=== PATIENT | female | born 1995 | race African-American/Black ===

== ENCOUNTER → 2017-09-14 | Outpatient (REF) | payer OTHER ==
[2017-09-14 19:41] LABS: CHLAMYDIA DNA AMPLIFICATION NEGATIVE (NEGATIVE); GC DNA AMPLIFICATION NEGATIVE (NEGATIVE)
== END ==
LOC: M LAB REF 16:52
DX: Z11.3 Encounter for screening for infections with a predominantly sexual mode of transmission (principal); Z12.4 Encounter for screening for malignant neoplasm of cervix

== ENCOUNTER → 2017-10-15 | Outpatient (REF) | payer OTHER ==
[2017-10-15 17:32] LABS: ALBUMIN 3.9 GM/DL (3.2-5.2); ALBUMIN/GLOBULIN RATIO 0.98 (1.00-1.93); ALKALINE PHOSPHATASE 112 U/L (45-117); ALT/SGPT 23 U/L (12-78); ANION GAP 8 MEQ/L (8-16); AST/SGOT 16 U/L (7-37); BILIRUBIN,TOTAL 0.3 MG/DL (0.2-1.0); BLOOD UREA NITROGEN 9 MG/DL (7-18); CALCIUM LEVEL 9.4 MG/DL (8.5-10.1); CARBON DIOXIDE LEVEL 27 MEQ/L (21-32); CHLORIDE LEVEL 107 MEQ/L (98-107); CREATININE FOR GFR 0.76 MG/DL (0.55-1.30); GLOMERULAR FILTRATION RATE > 60.0 (>60); GLUCOSE, FASTING 79 MG/DL (70-100); POTASSIUM SERUM 4.5 MEQ/L (3.5-5.1); SODIUM LEVEL 142 MEQ/L (136-145); TOTAL PROTEIN 7.9 GM/DL (6.4-8.2)
[2017-10-15 17:41] LABS: INR 0.94; PROTHROMBIN TIME 12.7 SECONDS (12.4-14.5)
[2017-10-15 17:50] LABS: BASO % 0.5 % (0.0-1.0); EOS # 0.1 10^3/uL (0.0-0.50); EOS % 0.8 % (0.0-3.0); HEMATOCRIT 40.9 % (36.0-47.0); HEMOGLOBIN 13.4 g/dl (12.0-16.0); IMMATURE GRANULOCYTE % 0.1 % (0-3.0); LYMPH # 2.4 10^3/uL (1.5-6.5); LYMPH % 31.1 % (24.0-44.0); MEAN CORPUSCULAR HEMOGLOBIN 29.7 pg (27.0-33.0); MEAN CORPUSCULAR HGB CONC 32.8 g/dl (32.0-36.5); MEAN CORPUSCULAR VOLUME 90.7 fl (80.0-96.0); MONO # 0.4 10^3/uL (0.0-0.8); MONO % 5.2 % (0.0-5.0); NEUTROPHILS # 4.7 10^3/uL (1.8-7.7); NEUTROPHILS % 62.3 % (36.0-66.0); PLATELET COUNT, AUTOMATED 376 10^3/uL (150-450); RED BLOOD COUNT 4.51 10^6/uL (4.00-5.40); RED CELL DISTRIBUTION WIDTH 12.9 % (11.5-14.5); WHITE BLOOD COUNT 7.6 10^3/uL (4.0-10.0)
== END ==
LOC: M LAB REF 16:42
DX: Z01.818 Encounter for other preprocedural examination (principal)

== ENCOUNTER → 2019-10-16 | Outpatient (REF) | payer OTHER ==
[2019-10-16 13:22] LABS: HEMATOCRIT 38.5 % (36.0-47.0); HEMOGLOBIN 12.5 g/dl (12.0-15.5); MEAN CORPUSCULAR HGB CONC 32.5 g/dl (32.0-36.5); MEAN CORPUSCULAR VOLUME 95.5 fl (80.0-96.0); PLATELET COUNT, AUTOMATED 300 10^3/uL (150-450); RED BLOOD COUNT 4.03 10^6/uL (4.00-5.40); WHITE BLOOD COUNT 6.7 10^3/uL (4.0-10.0)
[2019-10-16 14:06] LABS: HCG, SERUM QUANTITATIVE 95499 MIU/ML
[2019-10-17 09:18] LABS: RUBELLA IgG QUALITATIVE IMMUNE (IMMUNE)
[2019-10-17 09:47] LABS: HEPATITIS C VIRUS ABY INDEX 0.1 INDEX (<0.8); HIV 1&2 SCREEN CENTAUR NEGATIVE (NEGATIVE)
[2019-10-20 14:15] LABS: HEMOGLOBIN A 97.8 % (96.4-98.8); HEMOGLOBIN A2 2.2 % (1.8-3.2); HGB SOLUBILITY Negative (Negative)
== END ==
LOC: M LAB REF 12:30
PROVIDERS: ATTEND Obstetrics & Gynecology
DX: O36.80X0 Pregnancy with inconclusive fetal viability, not applicable or unspecified (principal); Z3A.00 Weeks of gestation of pregnancy not specified

== ENCOUNTER → 2019-10-20 | Outpatient (CLI) | payer OTHER ==
--- NOTE | 2019-10-20 12:12 | REP ---
REASON FOR EXAM: Supervision of normal . Transvesical imaging was obtained. Within the endometrial cavity there is an anechoic structure with increased echoes surrounding it consistent with a decidual reaction. Within the gestational sac there is echogenic material consistent with a pole, the mean crown-rump length measurement of which is consistent with an 8 week 1 day gestational age. Based on that the estimated date of delivery is 05/30/2020. Doppler interrogation of the heart shows a heart rate of 165 beats per minute. No chorionic or subchorionic abnormality was noted. Evaluation of the maternal adnexal spaces showed no abnormalities. A 2.8 x 2.1 x 2.2 cm sized complex appearing cyst was seen in the right ovary likely a corpus luteum cyst. IMPRESSION: Early OB ultrasound as described above. Electronically Signed by Rafael Perry DO 10/20/2019 01:01 P
== END ==
LOC: M RAD 10:25
PROVIDERS: ATTEND Obstetrics & Gynecology
DX: Z34.81 Encounter for supervision of other normal pregnancy, first trimester (principal); Z3A.08 8 weeks gestation of pregnancy

== ENCOUNTER → 2019-10-27 | Outpatient (REF) | payer OTHER | LOC: M LAB REF 16:24 | PROVIDERS: ATTEND Obstetrics & Gynecology | DX: Z34.81 Encounter for supervision of other normal pregnancy, first trimester (principal) ==

== ENCOUNTER → 2020-01-15 | Outpatient (CLI) | payer OTHER ==
[~2020-01-15] MED LIST: ACET-683 PO; IBUP80TA PO
--- NOTE | 2020-01-15 15:02 | REP ---
OBSTETRIC SONOGRAPHY: HISTORY: Supervision of for anatomy. FINDINGS: Scanning through the gravid uterus demonstrates a single living intrauterine gestation in a cephalic lie. motion is observed and heart rate is recorded at 134 beats per minute. A anterior grade 1 placenta is seen without evidence of previa or abruption. Amniotic fluid is subjectively normal. Closed cervical length is measured at 3.0 cm viewed transabdominally. No extrauterine abnormality is observed. There are two anechoic areas in the placenta consistent with venous lakes. No abnormality is observed. The following anatomic structures are identified and felt to be sonographically unremarkable: cranium, choroid plexus, cavum, cerebellum and posterior fossa, nuchal fold face and profile, four-chamber heart, left and right ventricular outflow tract views, diaphragm, left-sided stomach, abdominal wall cord insertion, three-vessel umbilical cord, kidneys and bladder, spine, upper and lower extremities. BIOMETRY CHART: BPD 4.9 cm = 20 weeks 6 days HC 18.2 cm = 20 weeks 4 days AC 16.6 cm = 21 weeks 4 days FL 3.2 cm = 19 weeks 6 days HL 3.3 cm = 21 weeks 1 day HC/AC ratio normal 1.10 Cephalic index normal 0.74. Estimated weight 376 grams, 0 pounds 13 ounces, 55th percentile for 20 weeks 4 days. IMPRESSION: Viable single intrauterine gestation at 21 weeks 1 day by today's composite sonographic criteria. CASEY by today's sonography May 26, 2020. anatomic survey is felt to be complete.
== END ==
LOC: M WHC 12:04
PROVIDERS: ATTEND Obstetrics & Gynecology
DX: Z34.02 Encounter for supervision of normal first pregnancy, second trimester (principal); Z36.89 Encounter for other specified antenatal screening; Z3A.21 21 weeks gestation of pregnancy

== ENCOUNTER → 2020-02-25 | Outpatient (CLI) | payer OTHER ==
[2020-04-18 15:10] LABS: HEMATOCRIT 37.2 % (36.0-47.0); HEMOGLOBIN 11.1 g/dl (12.0-15.5); MEAN CORPUSCULAR HEMOGLOBIN 19.2 pg (27.0-33.0); MEAN CORPUSCULAR HGB CONC 29.8 g/dl (32.0-36.5); MEAN CORPUSCULAR VOLUME 64.5 fl (80.0-96.0); PLATELET COUNT, AUTOMATED 266 10^3/uL (150-450); RED BLOOD COUNT 5.77 10^6/uL (4.00-5.40); WHITE BLOOD COUNT 8.8 10^3/uL (4.0-10.0)
== END ==
LOC: M LAB 14:20
PROVIDERS: ATTEND Advanced Practice Midwife
DX: Z34.02 Encounter for supervision of normal first pregnancy, second trimester (principal); Z3A.00 Weeks of gestation of pregnancy not specified

== ENCOUNTER 2020-05-22 02:06 | Inpatient (IN) | payer OTHER ==
[~2020-05-22] VITALS: Ht 160 cm; Wt 84.6 kg
[2020-05-22] VITALS (33 sets, daily range): BP systolic 76–171; BP diastolic 40–124
[2020-05-22 05:30] LABS: HEMATOCRIT 40.9 % (36.0-47.0); HEMOGLOBIN 13.1 g/dl (12.0-15.5); MEAN CORPUSCULAR HEMOGLOBIN 30.4 pg (27.0-33.0); MEAN CORPUSCULAR VOLUME 94.9 fl (80.0-96.0); PLATELET COUNT, AUTOMATED 194 10^3/uL (150-450); RED BLOOD COUNT 4.31 10^6/uL (4.00-5.40); WHITE BLOOD COUNT 9.9 10^3/uL (4.0-10.0)
[2020-05-22] MEDS ORDERED: FENTANYL 2MCG/ML ROPIVACAINE 0.2% IN 0.9% NACL 100ML IVBAG As Ordered ONE (05:41)
[2020-05-22] MEDS ORDERED: PENICILLIN G POTASSIUM IV 5 MU in D5W MINI-BAG PLUS 100 ML IV ONE (07:15)
[2020-05-22] MEDS ORDERED: OXYTOCIN 30 UNITS IN 0.9% NaCl 500ML IV BAG (J2590) As Ordered ONE (07:43)
[2020-05-22] MEDS ORDERED: LACTATED RINGER'S 1000 ML IV PRN (08:00)
[2020-05-22] MEDS ORDERED: EPIDURAL/PCA KEYS XX PRN (08:00)
[2020-05-22] MEDS ORDERED: NALOXONE INJ 0.4MG/1ML VIAL (J2310 PER 1MG) IV PRN (08:00)
[2020-05-22] MEDS ORDERED: ePHEDrine SULFATE 25 MG/5 ML(5MG/ML) SYRINGE IV PRN (08:00)
[2020-05-22] MEDS ORDERED: ONDANSETRON 4MG/2ML VIAL IV PRN (08:00)
[2020-05-22] MEDS ORDERED: FENTANYL/ROPIVACAINE/NACL BAG 100 ML EPIDURAL SCH (08:00)
[2020-05-22] MEDS ORDERED: EPIDURAL COMMENT XX SCH (08:00)
[2020-05-22] MEDS ORDERED: diphenhydrAMINE 50MG/ML VIAL (J1200) IV PRN (08:00)
[2020-05-22] MEDS ORDERED: REFRIGERATOR IV KEYS XX PRN (08:00)
--- NOTE | 2020-05-22 08:38 | HPEPDOC ---
Obstetrical History & Physical General Date of Admission May 22, 2020 at 04:42 History of Present Illness 25 yo at 38 5/7 weeks presetns with regular contractions for several hours. Care through [facility] and [facility]. 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 BREAST: . ABDOMEN: Gravid and non-tender to touch. FETUS: Is vertex (VTX) by sterile vaginal examination (SVE), fetus is vertex (VTX) by Gilbert. HEART RATE: Regular rate and rhythm. LUNGS: Clear to auscultation (CTA). EXTREMITIES: No edema. No clonus. Deep tendon reflexes (DTRs) + . Vital Signs/I&O Vital Signs Date Time Temp Pulse Resp B/P (MAP) Pulse Ox O2 Delivery O2 Flow Rate FiO2 05/22/20 07:37 80 98/62 (74) 05/22/20 02:21 97.9 Laboratory Data 24H LABS Laboratory Tests 2 05/22/20 04:53: Serology Scanned Report Hepatitis B Testing 05/22/20 05:24: Nucleated Red Blood Cells % (auto) 0.0 CBC/BMP Laboratory Tests 05/22/20 05:24 Pertinent Laboratoy Data Blood Type: O+ Group B Streptococcus: Unknown Vaginal Examination Dilation: 9 cm Effacement: 80% Station: -2 Cervical Consistency: Soft Presentation: Cephalic presentation Assessment Variability: Moderate Accelerations: Positive Decelerations: None Tocometer Frequency: every 1-3 min. Assessment/Plan Assessment Pt is a 25-year-old (G)1 para (P)0 at 38+5 weeks by 8 week ultrasound. Presents to Labor and Delivery (L&D) for contractions. Plan Admit and orient. 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 Diet: . Group B Streptococcus (GBS) [negative]. Labs and intravenous (IV) per unit protocol. Counseled on Pitocin and induction of labor (IOL). Lactated Ringers (LR): Bolus mL, then at mL/hr. Anticipate [normal spontaneous delivery ()]. C-S as appropriate. Labor and Delivery Counseling Admit for active labor Plan antibiotics for GBS unknown status Attempt to get records from SAL HOLLINS MD May 22, 2020 08:38
[2020-05-22] MEDS ORDERED: OXYTOCIN DRIP 30 UNITS in IV 1 EA IV SCH (09:00)
[2020-05-22] MEDS ORDERED: DIBUCAINE 1% OINTMENT 30GM TOP PRN (10:45)
[2020-05-22] MEDS ORDERED: RHOGAM 300 MCG (1500 IU) INJ (J2790) IM SCH (10:45)
[2020-05-22] MEDS ORDERED: MEASLES,MUMPS,RUBELLA VACCINE INJ (MMR-II) (90707) SC SCH (10:45)
[2020-05-22] MEDS ORDERED: ACETAMINOPHEN TAB 650MG DOSE (2X325MG) PO PRN (10:45)
[2020-05-22] MEDS ORDERED: OXYTOCIN DRIP 30 UNITS in IV 1 EA IV ONE (10:45)
[2020-05-22] MEDS ORDERED: IBUPROFEN 800 MG TAB PO PRN (10:45)
[2020-05-22] MEDS ORDERED: METHYLERGONOVINE MALEATE 0.2 MG TAB PO PRN (10:45)
[2020-05-22] MEDS ORDERED: DOCUSATE SODIUM 100 MG CAP PO PRN (10:45)
[2020-05-22] MEDS ORDERED: IBUPROFEN 600MG TAB PO PRN (10:45)
--- NOTE | 2020-05-22 10:52 | DNPDOC ---
[facility] Delivery Note Delivery Note DATE OF DELIVERY: May 22, 2020 PREDELIVERY DIAGNOSIS: 39-4/7 weeks' gestation and labor. POST DELIVERY DIAGNOSIS: Delivered. PROCEDURE: Spontaneous vaginal delivery. ZIPPER SETTER: Dr. Sal Serrano MD ANESTHESIA: none. ESTIMATED BLOOD LOSS: 300 mL. FINDINGS: 6 pound 13 ounce Male , Score 9/9. DELIVERY SUMMARY: Patient is a 25-year-old 1 now para 1 who was admitted to labor and delivery for active labor. After a 30 minute second stage she had a spontaneous vaginal delivery of a 6 lb. 13 oz, male with no delivery anesthesia. No nuchal cord. Shoulders delivered with ease. Infant cried quickly and was handed to the mother. Cord double clamped and cut. Placenta delivered spontaneously and appeared intact. Pt received IV Pitocin immediately after delivery of the placenta. A first degree left vaginal sulcus laceration repaired with 2-O chromic suture. Sponge and needle counts correct. SAL SERRANO MD May 22, 2020 10:52
[2020-05-22] MEDS ORDERED: PENICILLIN G POTASSIUM IV 2.5 MU in IV 1 EA IV SCH (12:00)
[2020-05-23] MEDS: ACETAMINOPHEN 500 MG TAB PO PRN ×2 (02:57→09:28)
[2020-05-23 05:30] VITALS: BP 117/75
[2020-05-23] MEDS: PRENATAL VITAMINS CHEWABLE TABLET PO SCH (09:28)
[2020-05-23 17:46] VITALS: BP 123/80
[2020-05-24 06:00] VITALS: BP 117/70
[2020-05-24] MEDS ORDERED: IBUP80TA PO (07:07)
[2020-05-24] MEDS ORDERED: ACET-683 PO (07:07)
[2020-05-24] MEDS: ACETAMINOPHEN 500 MG TAB PO PRN (08:09)
[2020-05-24] MEDS: PRENATAL VITAMINS CHEWABLE TABLET PO SCH (08:09)
[2020-05-24] MEDS ORDERED: INFLUENZA QUADRIVALENT PF VACCINE 0.5ML SYRINGE IM ONE (09:00)
[2020-05-24] MEDS ORDERED: BOOSTRIX/ADACEL VACCINE (DIPHTH/PERTUSS/ACELL/TETANUS) 0.5ML SYR IM ONE (09:00)
== END 2020-05-24 14:45 | disposition home or self-care (01) | DRG 560 ==
LOC: M LDO 02:06 → M LDI 04:42 → M OBS 12:18
PROVIDERS: ADMIT Advanced Practice Midwife; ATTEND Advanced Practice Midwife
PROC: 10E0XZZ Delivery of Products of Conception, External Approach (ICD-10-PCS; principal; 2020-05-22)
DX: O70.0 First degree perineal laceration during delivery (principal); Z37.0 Single live birth; Z3A.39 39 weeks gestation of pregnancy